=== PATIENT | male | born 1955 | race Caucasian/White ===

== ENCOUNTER 2020-04-15 09:38 | Outpatient (REF) | payer BC, SELFPAY ==
--- NOTE | 2020-04-15 09:49 | CT_ITS ---
EXAMINATION: CT CHEST WITHOUT CONTRAST CLINICAL INFORMATION: Pulmonary nodules. COMPARISON: No CT chest available for comparison. TECHNIQUE: Multidetector volumetric CT imaging of the chest was done. Axial MIP volume rendering provided. Sagittal and coronal reformatted images were obtained. This CT examination was performed using dose optimization techniques as appropriate, variously including the following: *Automated exposure control *Adjustment of mA and/or kV according to patient size (this includes techniques or standardized protocols for targeted exams where dose is matched to indication/reason for exam; i.e. extremities or head) *Use of iterative reconstruction technique DLP: 180 mGy-cm FINDINGS: FOURTH GRADE TEACHER: Unremarkable. LUNGS: There is a 2 mm, tail appearing nodule right upper lobe image 146/7, 2 mm nodule centrally in the right upper lobe axial image 145/7, 2 mm nodule centrally right upper lobe image 171/7, 5 mm nodule right lower lobe adjacent to major fissure axial image 316/7 4 mm subpleural nodule right lower lobe posteriorly image 323/7. 2 mm nodule along the right minor fissure image 309/7. No additional nodules, mass or consolidation seen. MEDIASTINUM: The thyroid lobes are symmetrical and normal. The central trachea and the bronchi are widely patent. Heart size and the great vessels are normal caliber. There are coronary artery calcifications present. There is no pericardial effusion. PLEURA: There is no pleural effusion. No pleural mass or thickening. AXILLA: No abnormal axilla lymph nodes or mass seen. There is a prominent retroareolar soft tissue density suggestive of gynecomastia. UPPER ABDOMEN: Visualized liver, spleen, pancreas and bilateral adrenal glands appear unremarkable. OSSEOUS STRUCTURES: There is mild ventral spondylosis dorsal spine. No lytic or sclerotic process seen. IMPRESSION: Multiple small pulmonary nodules as described above. Recommend follow-up as per Rakan guidelines and nodules less than 6 nodular in low risk patients no follow up in high risk patients at 12 months
== END 2020-04-15 09:39 | disposition home or self-care (01) ==
LOC: HO.CT 09:38
PROVIDERS: Visit Provider Internal Medicine Pulmonary Disease
DX: R91.8 Other nonspecific abnormal finding of lung field (principal)
CPT/HCPCS: 71250

== ENCOUNTER → 2020-05-14 11:39 | Outpatient (BNVA) | payer BC, SELFPAY | PROVIDERS: PCP Internal Medicine; Referring Provider Internal Medicine; Visit Provider Internal Medicine Pulmonary Disease | DX: Z76.89 Persons encountering health services in other specified circumstances (principal) ==

== ENCOUNTER → 2020-07-19 10:21 | Outpatient (BNVA) | payer BC, SELFPAY | PROVIDERS: PCP Internal Medicine; Visit Provider Internal Medicine Pulmonary Disease ==

== ENCOUNTER 2020-07-19 11:13 | Outpatient (REF) | payer BC, SELFPAY ==
--- NOTE | 2020-07-19 15:29 | PFT_ITS ---
INDICATION: Dyspnea. SPIROMETRY: The FEV1 to FVC of 88% with an FEV1 of 3.14 L, which is 110% predicted, and an FVC of 3.56 L, which is predicted. No significant response to bronchodilators noted. Maximum voluntary ventilation 91% predicted. LUNG VOLUMES: Total lung capacity 94% predicted. DIFFUSION CAPACITY: DLCO 82% predicted. COMPARISONS: None. INTERPRETATION: No obstructive nor restrictive ventilatory defects identified. No significant response to bronchodilators noted. Normal maximum voluntary ventilation. Lung volumes are within normal limits. Diffusion capacity is low normal. If asthma is in the differential, methacholine challenge may be helpful in assessing for hyper-reactive airways, otherwise clinical correlation warranted. Rohan Null MD MR/MODL / [id number]
== END 2020-07-19 11:14 | disposition home or self-care (01) ==
LOC: HO.RESP 11:13
PROVIDERS: PCP Internal Medicine; Visit Provider Internal Medicine Pulmonary Disease
DX: R06.00 Dyspnea, unspecified (principal); R05 Cough
CPT/HCPCS: 94060; 94727; 94729

== ENCOUNTER → 2020-08-05 09:00 | Outpatient (BNVA) | payer BC, SELFPAY | PROVIDERS: PCP Internal Medicine; Visit Provider Internal Medicine Pulmonary Disease ==

== ENCOUNTER → 2020-08-23 09:21 | Outpatient (REF) | payer BC, SELFPAY ==
--- NOTE | 2020-08-23 09:26 | CA_ITS ---
Transthoracic Echocardiogram Patient (Last, First, Middle): Vinicius Khalil L Gender: Male Date of : 1955 Age: 65 Procedure Date: 08/23/2020 Procedure Type: Transthoracic Echocardiogram Location: OP Height: 165.1 cm Weight: 80.29 kg BSA: 1.88 m2 Heart Rate: bpm BP: 120 / 72 mmHg Chargeback Specialist: ZACARIAS Referring MD: Erik Palacios MD Kitchen Steward: Raymond Aguirre MD Symptoms: R06.00 - Dyspnea, unspecified Study Quality: Fair ECG Rhythm: Sinus Conclusions: - Essentially normal study with trivial aortic regurgitation Findings Left Ventricle Normal left ventricular size, thickness, and systolic function. The visually estimated ejection fraction is between 60-65%. Diastolic function is normal for age. Right Ventricle Normal right ventricular cavity size and systolic function. Atria Both atria are normal in size. There is no evidence of interatrial shunt. Aortic Valve The aortic valve was not well visualized. There is mild calcification of the aortic valve. There is no aortic valve stenosis. There is trace (trivial) aortic valve regurgitation. Mitral Valve Likely normal mitral valve structure and function. There is trace mitral valve regurgitation. There is no mitral valve stenosis. Pulmonic Valve The pulmonic valve was not well visualized. Tricuspid Valve Likely normal tricuspid valve structure and function. There is trace tricuspid valve regurgitation. The right ventricular systolic pressure is normal. The right ventricular systolic pressure is 25 mmHg. Normal right atrial pressure. There is no evidence of pulmonary hypertension. Great Vessels All visible segments of the aorta are normal in size. The pulmonary artery was not well visualized. Venous The inferior vena cava is normal in size and collapses greater than 50% with inspiration. Pericardium/Pleural There is no evidence of pericardial effusion. Prior Study Comparison No prior study available for comparison. Measurements M-Mode Liner Measurements Normals - Women/Men AOV Cusps: 1.80 1.5-2.6 cm/m2 2D Linear Measurements IVSd: -0.94 0.6-0.9/0.6-1.0 cm LVIDd: 3.65 3.9-5.3/4.2-5.9 cm LVIDd Index: 1.94 2.4-3.2/2.2-3.1 cm/m2 LVIDs: 2.42 2.0-3.6 cm LVPWd: 0.93 0.7-1.1 cm Ao Root: 3.20 2.1-3.5 cm LA Diam: 3.10 2.7-3.8/3.0-4.0 cm LAIDs Index: 1.65 1.5-2.3 cm/m2 LV Mass: 192.52 67-162/88-224 g LV Mass Index: 102.41 43-95/49-115 g/m2 LVOT Diam: 2.10 3.0+(-)1.3 cm 2D Systolic Function EF 4C: 67.90 >55% EF 2C: 70.00 >55% EF BiP: 69.70 >55% Mitral Valve MV Pk E: 0.68 MV PK A: 0.58 MV Decel Time: 204.00 E/A: 1.20 E'Lateral: 9.03 E'Medial: 5.87 E/E' Med: 11.60 E/E' Lat: 7.50 PHT: 60.00 MVA PHT: 3.67 Decel Payette: 3.33 Aortic Valve AoV Pk Patrick: 1.30 AoV Pk Grad: 7.00 LVOT LVOT Pk Patrick: 1.07 LVOT Mn Patrick: 0.75 LVOT VTI: 0.22 LVOT Pk Grad: 5.00 LVOT Mn Grad: 3.00 LVOT Diam: 2.10 LVOT Area: 3.46 Diastolic Function MV Pk E: 0.68 MV Pk A: 0.58 E/A: 1.20 E'Medial: 5.87 E/E' Med: 11.60 E' Laterial: 9.03 E/E' Lat: 7.50 Tricuspid Valve TR Pk Patrick: 2.34 TR Pk Grad: 22.00 RA Press: 3.00 RVSP: 25.00 Great Vessels Aorta Ao Root-2D: 3.20 2.0-3.7 cm Ao Asc: 3.30 2.1-3.4 cm Ao Arch: 2.60 Pulmonary Valve PV Pk Patrick: 1.06 Peak PV Grad: 4.00 Updated in Other Vendor System with Status of Final Raymond Aguirre MD electronically signed on 08/24/2020 1:41:51 PM with status of Final
== END ==
LOC: HO.CARD 09:21
PROVIDERS: Visit Provider Internal Medicine Pulmonary Disease
DX: R06.00 Dyspnea, unspecified (principal)
CPT/HCPCS: 93306

== ENCOUNTER → 2020-09-18 10:38 | Outpatient (BNVA) | payer BC, SELFPAY | PROVIDERS: PCP Internal Medicine; Visit Provider Internal Medicine Pulmonary Disease ==

== ENCOUNTER → 2021-06-12 11:43 | Outpatient (BNVA) | payer MEDICARE, BC, SELFPAY | PROVIDERS: PCP Internal Medicine; Visit Provider Internal Medicine Pulmonary Disease | DX: G47.33 Obstructive sleep apnea (adult) (pediatric) (principal); R91.8 Other nonspecific abnormal finding of lung field; R06.00 Dyspnea, unspecified; Z99.89 Dependence on other enabling machines and devices | CPT/HCPCS: 99212 ==

== ENCOUNTER → 2021-07-22 09:47 | Outpatient (BNVA) | payer MEDICARE, BC, SELFPAY | PROVIDERS: PCP Internal Medicine; Visit Provider Internal Medicine Pulmonary Disease | DX: G47.33 Obstructive sleep apnea (adult) (pediatric) (principal); R91.8 Other nonspecific abnormal finding of lung field | CPT/HCPCS: 99212 ==

== ENCOUNTER → 2022-01-29 09:51 | Outpatient (BNVA) | payer MEDICARE, BC, SELFPAY | PROVIDERS: PCP Internal Medicine; Visit Provider Internal Medicine Pulmonary Disease | DX: R91.8 Other nonspecific abnormal finding of lung field (principal); G47.33 Obstructive sleep apnea (adult) (pediatric); R06.00 Dyspnea, unspecified | CPT/HCPCS: 99212 ==

== ENCOUNTER → 2022-08-11 12:54 | Outpatient (BNVA) | payer MEDICARE, BC, SELFPAY | PROVIDERS: PCP Internal Medicine; Visit Provider Internal Medicine Pulmonary Disease | DX: R91.8 Other nonspecific abnormal finding of lung field (principal); G47.33 Obstructive sleep apnea (adult) (pediatric) | CPT/HCPCS: 99212 ==

== ENCOUNTER 2023-04-15 13:29 | Outpatient (AMB) | payer MEDICARE, BC, SELFPAY ==
--- NOTE | 2023-04-15 13:34 | A.OFFVIS_ITS ---
Intake Vital Signs 04/15/23 13:38 Height 5 ft 5 in BP 117/64 Blood Pressure Location Rt brachial Position Sitting Pulse 73 Pulse Source Doppler Pulse Oximetry (%) 97 Oxygen Delivery Method Room Air Intake Visit Reasons: COPD Allergies No Known Allergies Allergy (Verified 08/11/22 13:04) HPI COPD HPI Details 68-year-old gentleman, nonsmoker, follow ed for EMILIA.? He continues to use his CPAP with good control of his underlying sleep apnea.? No new pulmonary related concerns complaints. Review of Systems Const Denies daytime sleepiness, Denies excessive sweating, Denies fatigue, Denies fever(s), Denies lethargy, Denies malaise, Denies night sweats, Denies snoring and Denies weight loss Eyes Denies blurry vision and Denies itchy eyes ENT Denies nasal congestion, Denies post nasal drip, Denies sinus pain, Denies sinus pressure and Denies other ( Thrush) Card Denies chest pain, Denies pedal edema, Denies dyspnea, Denies orthopnea and Denies paroxysmal nocturnal dyspnea Resp Denies cough, Denies hemoptysis, Denies excessive phlegm production, Denies dyspnea, Denies snoring and Denies wheezing GI Denies abdominal pain and Denies heartburn Musc Denies myalgias, Denies arthralgias and Denies joint swelling Skin/Breast Denies rash Neuro Denies memory loss and Denies seizure-like activity Psych Denies abnormal sleep pattern, Denies anxiety and Denies memory loss Endo Denies excessive sweating, Denies fatigue and Denies heat intolerance Flynn/Lymph Denies easy bruising Aller/Immun Denies itchy eyes, Denies seasonal rhinorrhea and Denies wheezing Physical Exam Vital Signs: Last Vital Signs Pulse 73 04/15/23 13:38 BP 117/64 04/15/23 13:38 Pulse Ox 97 04/15/23 13:38 Oxygen Delivery Method Room Air 04/15/23 13:38 Const General: no acute distress and alert Nutritional Appearance: not obese Orientation/consciousness: Other orientation findings ( oriented) HEENT Head: Yes atraumatic Eyes General: appearance normal, both eyes and all related structures Sclerae: sclerae normal EOM: EOMs intact bilaterally Neck Neck: Yes supple Lymphatic: no lymphadenopathy noted Resp Effort & Inspection: normal respiratory effort and no use of accessory muscles Auscultation: clear to auscultation bilaterally Cardio Rate: regular rate Rhythm: regular rhythm Heart sounds: no gallops, no murmurs and no rubs Skin General skin exam: other ( warm) Extrem General: No clubbing, No cyanosis and No edema Assessment & Plan Assessment & Plan (1) EMILIA (obstructive sleep apnea): Code(s): G47.33 - Obstructive sleep apnea (adult) (pediatric) Plan: Therapy and compliance report reviewed - patient is benefitting from and is compliant with noninvasive positive pressure ventilation treatment, using it greater than 70% of the time, more than 4 hours per night. Continue current CPAP therapy. Coding Level of Care Code Est Pt Level 3 (70228) Diagnoses EMILIA (obstructive sleep apnea) G47.33
[2023-04-15 13:38] VITALS: BP 117/64; PULSE 73; O2SAT 97
== END 2023-04-15 13:57 | disposition home or self-care (01) ==
PROVIDERS: PCP Internal Medicine; Visit Provider Internal Medicine Pulmonary Disease
DX: G47.33 Obstructive sleep apnea (adult) (pediatric) (principal)
CPT/HCPCS: 99213

== ENCOUNTER → 2023-04-15 13:29 | Outpatient (BNVA) | payer MEDICARE, BC, SELFPAY | PROVIDERS: PCP Internal Medicine; Visit Provider Internal Medicine Pulmonary Disease | DX: G47.33 Obstructive sleep apnea (adult) (pediatric) (principal) | CPT/HCPCS: 99212 ==

== ENCOUNTER 2023-07-16 13:58 | Outpatient (AMB) | payer MEDICARE, BC, SELFPAY ==
[2023-07-16 14:28] VITALS: BP 132/68; PULSE 72; O2SAT 97; BMI 29.1
--- NOTE | 2023-07-16 14:28 | MHC.OFFVIS ---
Intake Vital Signs 07/16/23 14:28 Height 5 ft 5 in Weight 175 lb BMI 29.1 BP 132/68 Blood Pressure Location Lt brachial Position Sitting Pulse 72 Pulse Source Pulse Oximeter Pulse Oximetry (%) 97 Oxygen Delivery Method Room Air Intake Visit Reasons: increased shortness of breath Dormitory Supervisor Required: No Mail Messenger: Mail Messenger offered & declined Allergies No Known Allergies Allergy (Verified 07/16/23 14:32) Medication List - Last Reconciled 07/16/23 by Matilda Mckeon LPN [id number] 600-2-6 mg 1 tab PO DAILY apixaban (Eliquis) 5 mg PO BID diltiazem HCl ER (DILT-XR) 180 mg PO DAILY furosemide 20 mg PO DAILY omeprazole 20 mg PO DAILY rosuvastatin 10 mg PO BEDTIME tamsulosin 0.8 mg PO DAILY HPI increased shortness of breath HPI Details Vinicius is a pleasant 68 year old male, never smoker, followed for bilateral pulmonary nodules and EMILIA on CPAP.?Today he presents for an acute visit. Per Dr. Palacios's last note, it appeared patient was undergoing cardiac evaluation, as arrhythmias may have been contributing to intermittent dyspnea. He is taking lasix QD. Denies orthopnea or BLE. He reports progressively worsening dyspnea on exertion that has been more persistent over the past year. He denies wheezing, chest tightness or cough. He is not on any maintenance inhalers. COUNTS INCLUDE 234 BEDS AT THE [facility] Social History (Updated 07/16/23 @ 14:35 by Matilda Mckeon LPN) Patient Tobacco Use Status: Never used Tobacco Review of Systems Const Denies chills, Denies excessive sweating, Denies fever(s), Denies headache(s) and Denies night sweats Eyes Denies dry eyes, Denies irritation and Denies itchy eyes ENT Reports Normal hearing present, Denies headache(s), Denies nasal congestion, Denies nasal discharge, Denies post nasal drip and Denies sore throat Card Denies chest pain, Denies chest pain at rest, Denies chest pain with activity, Denies claudication, Denies leg edema, Denies orthopnea and Denies paroxysmal nocturnal dyspnea Resp Denies chest congestion, Denies cough, Denies excessive phlegm production, Denies pain on inspiration, Denies pain with cough, Denies stridor and Denies wheezing Musc Denies myalgias Neuro Reports Normal hearing present and Denies headache(s) Endo Denies excessive sweating Flynn/Lymph Denies lymphadenopathy Aller/Immun Denies itchy eyes, Denies seasonal rhinorrhea and Denies wheezing Physical Exam Vital Signs: Last Vital Signs Pulse 72 07/16/23 14:28 BP 132/68 07/16/23 14:28 Pulse Ox 97 07/16/23 14:28 Oxygen Delivery Method Room Air 07/16/23 14:28 BMI result Body Mass Index 29.1 Const General: cooperative, healthy appearing, comfortable, no acute distress, well developed and alert Nutritional Appearance: obese Orientation/consciousness: patient oriented x3 Limitations: no limitations HEENT Head: Yes normal to inspection, Yes normocephalic and Yes atraumatic Ears: hearing grossly normal bilaterally and external ears normal Eyes General: appearance normal, both eyes and all related structures Eyelids: Yes eyelids normal Sclerae: sclerae normal EOM: EOMs intact bilaterally Neck Neck: Yes normal visual inspection and Yes no lymphadenopathy Lymphatic: no lymphadenopathy noted Chest Chest palpation & inspection: normal inspection of the chest Resp Effort & Inspection: normal respiratory effort, able to speak in complete sentences, no audible wheezes, no cough, no stridor, not tachypneic, no tripod positioning and no use of accessory muscles Auscultation: clear to auscultation bilaterally Cardio Jugular venous distension: no JVD Rate: regular rate Rhythm: regular rhythm Skin Other: warm, dry General skin exam: no rashes or lesions noted Neuro General: patient oriented x3 Cranial nerves: Yes Normal hearing present Cognition (Neuro): normal cognition Gait exam (Neuro): Normal gait present Extrem General: Yes normal to inspection, Yes capillary refill normal, Yes no clubbing, cyanosis or edema and Yes no pedal edema Psych Appearance: grossly normal and well kempt Speech and movement: Normal speech and movement present and Clear speech present Affect: normal affect Attitude: cooperative Thought process: Normal thought process present Thought content: Normal thought content present Insight: Good insight present (Psych) Judgement: Good judgement present (Psych) Assessment & Plan Assessment & Plan (1) Dyspnea on exertion: Code(s): R06.00 - Dyspnea, unspecified (2) Pulmonary nodules: Code(s): R91.8 - Other nonspecific abnormal finding of lung field Plan Vinicius presents with progressively worsening dyspnea over the past year. Will send for updated PFT and chest CT. Discussed empirically trialing an inhaler but patient would like to hold off until reviewing results. All questions were answered and patient is in agreement of plan. Will follow up to review results or sooner if needed. Orders: Orders CT chest wo IV con Today R06.09 - Other forms of dyspnea, R91.8 - Other nonspecific abnormal finding of lung field PFT pulmonary function test Today R06.00 - Dyspnea, unspecified Coding Level of Care Code Est Pt Level 4 (07907) Diagnoses Dyspnea on exertion R06.00 Pulmonary nodules R91.8
== END 2023-07-16 15:02 | disposition home or self-care (01) ==
PROVIDERS: PCP Internal Medicine; Visit Provider Nurse Practitioner Family
DX: R06.00 Dyspnea, unspecified (principal); R91.8 Other nonspecific abnormal finding of lung field
CPT/HCPCS: 99214

== ENCOUNTER → 2023-07-16 13:58 | Outpatient (BNVA) | payer MEDICARE, BC, SELFPAY | PROVIDERS: PCP Internal Medicine; Visit Provider Nurse Practitioner Family | DX: R06.00 Dyspnea, unspecified (principal); R91.8 Other nonspecific abnormal finding of lung field | CPT/HCPCS: 99212 ==

== ENCOUNTER 2023-08-27 14:48 | Outpatient (REF) | payer MEDICARE, BC, SELFPAY ==
--- NOTE | ~2023-08-27 | CT_ITS ---
EXAMINATION: CT CHEST WITHOUT CONTRAST CLINICAL INFORMATION: Dyspnea. COMPARISON: Chest CTs dating between April 01, 2021 and September 26, 2019. TECHNIQUE: Multidetector volumetric CT imaging of the chest was done. Axial MIP volume rendering provided. Sagittal and coronal reformatted images were obtained. This CT examination was performed using dose optimization techniques as appropriate, variously including the following: *Automated exposure control *Adjustment of mA and/or kV according to patient size (this includes techniques or standardized protocols for targeted exams where dose is matched to indication/reason for exam; i.e. extremities or head) *Use of iterative reconstruction technique DLP: 192 mGy-cm FINDINGS: LUNGS: The lungs are clear with no evidence of inflammation or nodules. MEDIASTINUM: Calcification of the aortic valve. Heart normal in size. No pericardial effusion. No evidence of adenopathy by size criteria. CORONARY ARTERY CALCIFICATION: Moderate to severe. PLEURA: There is no pleural effusion. No pleural mass or thickening. CHEST WALL/AXILLA: Bilateral gynecomastia. No lymphadenopathy by size criteria. UPPER ABDOMEN: Fatty infiltration of the liver. OSSEOUS STRUCTURES: Unremarkable. CT/CT chest wo IV con IMPRESSION: Unremarkable appearance of the lungs. Additional findings as above.
== END 2023-08-27 14:49 | disposition home or self-care (01) ==
LOC: HO.CT 14:48
PROVIDERS: PCP Internal Medicine; Visit Provider Nurse Practitioner Family
DX: R06.09 Other forms of dyspnea (principal); R91.8 Other nonspecific abnormal finding of lung field
CPT/HCPCS: 71250

== ENCOUNTER 2023-09-28 10:13 | Outpatient (AMB) | payer MEDICARE, BC, SELFPAY ==
[2023-09-28 10:14] VITALS: BP 118/62; PULSE 71; O2SAT 96; BMI 30.8
--- NOTE | 2023-09-28 10:14 | MHC.OFFVIS ---
Intake Vital Signs 09/28/23 10:14 Height 5 ft 5 in Weight 185 lb 3.013 oz BMI 30.8 BP 118/62 Blood Pressure Location Lt brachial Position Sitting Pulse 71 Pulse Source Doppler Pulse Oximetry (%) 96 Intake Visit Reasons: follow up for results Allergies No Known Allergies Allergy (Verified 07/16/23 14:32) HPI follow up for results HPI Details 68-year-old gentleman, nonsmoker, followed for EMILIA.? He continues to use his CPAP with good control of his underlying sleep apnea.? Now he is complaining of slowly worsening dyspnea over the last 4 years so far with negative pulmonary and cardiac evaluation. [facility] Social History Patient Tobacco Use Status: Never used Tobacco Review of Systems Const Denies daytime sleepiness, Denies excessive sweating, Denies fatigue, Denies fever(s), Denies lethargy, Denies malaise, Denies night sweats, Denies snoring and Denies weight loss Eyes Denies blurry vision and Denies itchy eyes ENT Denies nasal congestion, Denies post nasal drip, Denies sinus pain, Denies sinus pressure and Denies other ( Thrush) Card Denies chest pain, Denies pedal edema, Denies dyspnea, Reports dyspnea on exertion, Denies orthopnea and Denies paroxysmal nocturnal dyspnea Resp Denies cough, Denies hemoptysis, Denies excessive phlegm production, Denies dyspnea, Reports dyspnea on exertion, Denies snoring and Denies wheezing GI Denies abdominal pain and Denies heartburn Musc Denies myalgias, Denies arthralgias and Denies joint swelling Skin/Breast Denies rash Neuro Denies memory loss and Denies seizure-like activity Psych Denies abnormal sleep pattern, Denies anxiety and Denies memory loss Endo Denies excessive sweating, Denies fatigue and Denies heat intolerance Flynn/Lymph Denies easy bruising Aller/Immun Denies itchy eyes, Denies seasonal rhinorrhea and Denies wheezing Physical Exam Vital Signs: Last Vital Signs Pulse 71 09/28/23 10:14 BP 118/62 09/28/23 10:14 Pulse Ox 96 09/28/23 10:14 BMI result Body Mass Index 30.8 Const General: no acute distress and alert Nutritional Appearance: not obese Orientation/consciousness: Other orientation findings ( oriented) HEENT Head: Yes atraumatic Eyes General: appearance normal, both eyes and all related structures Sclerae: sclerae normal EOM: EOMs intact bilaterally Neck Neck: Yes supple Lymphatic: no lymphadenopathy noted Resp Effort & Inspection: normal respiratory effort and no use of accessory muscles Auscultation: clear to auscultation bilaterally Cardio Rate: regular rate Rhythm: regular rhythm Heart sounds: no gallops, no murmurs and no rubs Skin General skin exam: other ( warm) Extrem General: No clubbing, No cyanosis and No edema Assessment & Plan Assessment & Plan (1) Dyspnea on exertion: Code(s): R06.00 - Dyspnea, unspecified Plan: Unclear etiology, so far with negative pulmonary and cardiac evaluation. Will repeat cardiopulmonary exercise test. (2) EMILIA (obstructive sleep apnea): Code(s): G47.33 - Obstructive sleep apnea (adult) (pediatric) Plan: Well controlled on current CPAP therapy. Continue CPAP therapy. Therapy and compliance report reviewed - patient is benefitting from and is compliant with noninvasive positive pressure ventilation treatment, using it greater than 70% of the time, more than 4 hours per night. Orders: Orders CA cardiopulmonary stress test Today R06.00 - Dyspnea, unspecified Coding Level of Care Code Est Pt Level 4 (92427) Diagnoses Dyspnea on exertion R06.00 EMILIA (obstructive sleep apnea) G47.33
== END 2023-09-28 10:41 | disposition home or self-care (01) ==
PROVIDERS: PCP Internal Medicine; Visit Provider Internal Medicine Pulmonary Disease
DX: R06.00 Dyspnea, unspecified (principal); G47.33 Obstructive sleep apnea (adult) (pediatric)
CPT/HCPCS: 99214

== ENCOUNTER → 2023-09-28 10:13 | Outpatient (BNVA) | payer MEDICARE, BC, SELFPAY | PROVIDERS: PCP Internal Medicine; Visit Provider Internal Medicine Pulmonary Disease | DX: R06.00 Dyspnea, unspecified (principal); G47.33 Obstructive sleep apnea (adult) (pediatric) | CPT/HCPCS: 99212 ==

== ENCOUNTER 2023-10-13 08:42 | Outpatient (REF) | payer MEDICARE, BC, SELFPAY ==
[2023-10-13 09:24] VITALS: PULSE 63; RESP 16; O2SAT 95
--- NOTE | 2023-10-13 16:03 | PFT_ITS ---
Flows: FEV1: 94 % of predicted at 2.65 L FVC: 90 % of predicted at 3.26 L FEV1/FVC: 81 % Bronchodilator response: Present in small to medium airways only Volumes: Total lung capacity: 88 % of predicted at 5.29 L Residual volume: 86 % of predicted at 1.78 L Slow vital capacity: 88 % of predicted at 3.51 L Expiratory reserve volume: 100 % of predicted at 0.97 L Diffusion capacity: Normal Impression: No obstructive or restrictive ventilatory defect. Bronchodilator response is present in small to medium airways only. MTDD
== END 2023-10-13 08:43 | disposition home or self-care (01) ==
LOC: HO.RESP 08:42
PROVIDERS: PCP Internal Medicine; Visit Provider Nurse Practitioner Family
DX: R06.00 Dyspnea, unspecified (principal)
CPT/HCPCS: 94010; 94640; 94727; 94729

== ENCOUNTER → 2023-10-13 16:03 | Outpatient (BNV) | payer MEDICARE, BC, SELFPAY | PROVIDERS: PCP Internal Medicine; Visit Provider Internal Medicine Pulmonary Disease | DX: R06.00 Dyspnea, unspecified (principal) | CPT/HCPCS: 94060; 94727; 94729 ==

== ENCOUNTER 2023-10-27 13:09 | Outpatient (AMB) | payer MEDICARE, BC, SELFPAY ==
--- NOTE | 2023-10-27 13:10 | MHC.OFFVIS ---
Vital Signs 10/27/23 13:11 Height 5 ft 5 in Weight 182 lb BMI 30.3 BP 126/67 Blood Pressure Location Lt brachial Position Sitting Pulse 76 Pulse Source Doppler Pulse Oximetry (%) 94 Oxygen Delivery Method Room Air Intake Visit Reasons: Obstructive sleep apnea Allergies No Known Allergies Allergy (Verified 10/27/23 13:18) HPI HPI Obstructive sleep apnea: Details: 68-year-old gentleman, nonsmoker, followed for EMILIA.? He continues to use his CPAP with good control of his underlying sleep apnea. He continues to complain of slowly worsening dyspnea over the last 4 years so far with negative pulmonary and cardiac evaluation. Patient did have cardiopulmonary exercise test that showed no pulmonary, but cardiovascular limitation to his exercise capacity. [facility] Social History Patient Tobacco Use Status: Never used Tobacco Review of Systems Const Denies daytime sleepiness, Denies excessive sweating, Denies fatigue, Denies fever(s), Denies lethargy, Denies malaise, Denies night sweats, Denies snoring and Denies weight loss Eyes Denies blurry vision and Denies itchy eyes ENT Denies nasal congestion, Denies post nasal drip, Denies sinus pain, Denies sinus pressure and Denies other ( Thrush) Card Denies chest pain, Denies pedal edema, Denies dyspnea, Denies orthopnea and Denies paroxysmal nocturnal dyspnea Resp Denies cough, Denies hemoptysis, Denies excessive phlegm production, Denies dyspnea, Denies snoring and Denies wheezing GI Denies abdominal pain and Denies heartburn Musc Denies myalgias, Denies arthralgias and Denies joint swelling Skin/Breast Denies rash Neuro Denies memory loss and Denies seizure-like activity Psych Denies abnormal sleep pattern, Denies anxiety and Denies memory loss Endo Denies excessive sweating, Denies fatigue and Denies heat intolerance Flynn/Lymph Denies easy bruising Aller/Immun Denies itchy eyes, Denies seasonal rhinorrhea and Denies wheezing Physical Exam Vital Signs: Last Vital Signs Pulse 76 10/27/23 13:11 BP 126/67 10/27/23 13:11 Pulse Ox 94 10/27/23 13:11 Oxygen Delivery Method Room Air 10/27/23 13:11 BMI result Body Mass Index 30.3 Const General: no acute distress and alert Nutritional Appearance: not obese Orientation/consciousness: Other orientation findings ( oriented) HEENT Head: Yes atraumatic Eyes General: appearance normal, both eyes and all related structures Sclerae: sclerae normal EOM: EOMs intact bilaterally Neck Neck: Yes supple Lymphatic: no lymphadenopathy noted Resp Effort & Inspection: normal respiratory effort and no use of accessory muscles Auscultation: clear to auscultation bilaterally Cardio Rate: regular rate Rhythm: regular rhythm Heart sounds: no gallops, no murmurs and no rubs Skin General skin exam: other ( warm) Extrem General: No clubbing, No cyanosis and No edema Assessment & Plan Assessment & Plan (1) EMILIA (obstructive sleep apnea): Code(s): G47.33 - Obstructive sleep apnea (adult) (pediatric) Category: Medical Plan: Well controlled on current CPAP therapy. Continue CPAP therapy. (2) Dyspnea on exertion: Code(s): R06.00 - Dyspnea, unspecified Category: Medical Plan: Results of cardiopulmonary exercise test reviewed - no evidence of pulmonary limitation, does have evidence of cardiovascular limitation. Patient has been advised to continue to follow-up with his mobile crane operator. Coding Level of Care Code Est Pt Level 4 (37803) Diagnoses EMILIA (obstructive sleep apnea) G47.33 Dyspnea on exertion R06.00
[2023-10-27 13:11] VITALS: BP 126/67; PULSE 76; O2SAT 94; BMI 30.3
== END 2023-10-27 13:25 | disposition home or self-care (01) ==
PROVIDERS: PCP Internal Medicine; Visit Provider Internal Medicine Pulmonary Disease
DX: G47.33 Obstructive sleep apnea (adult) (pediatric) (principal); R06.00 Dyspnea, unspecified
CPT/HCPCS: 99214

== ENCOUNTER → 2023-10-27 13:09 | Outpatient (BNVA) | payer MEDICARE, BC, SELFPAY | PROVIDERS: PCP Internal Medicine; Visit Provider Internal Medicine Pulmonary Disease | DX: G47.33 Obstructive sleep apnea (adult) (pediatric) (principal); R06.00 Dyspnea, unspecified | CPT/HCPCS: 99212 ==

== ENCOUNTER 2025-02-19 12:55 | Outpatient (AMB) | payer MEDICARE, BC, SELFPAY ==
[2025-02-19 13:03] VITALS: BP 111/62; PULSE 68; O2SAT 97
--- NOTE | 2025-02-19 13:03 | MHC.OFFVIS ---
Vital Signs 02/19/25 13:03 Weight 175 lb BP 111/62 Blood Pressure Location Rt brachial Position Sitting Pulse 68 Pulse Source Pulse Oximeter Pulse Oximetry (%) 97 Oxygen Delivery Method Room Air Intake Visit Reasons: COPD Allergies No Known Allergies Allergy (Verified 10/27/23 13:18) HPI HPI COPD: Details: 69-year-old gentleman, nonsmoker, followed for EMILIA.? He continues to use his CPAP with good control of his underlying sleep apnea. She denies any recent exacerbations. Patient recently been diagnosed with vascular dementia, that unfortunately is slowly progressive. [facility] Social History (Reviewed 10/27/23 @ 13:17 by Audrey Villegas [facility]) Patient Tobacco Use Status: Never used Tobacco Review of Systems Const Denies daytime sleepiness, Denies excessive sweating, Denies fatigue, Denies fever(s), Denies lethargy, Denies malaise, Denies night sweats, Denies snoring and Denies weight loss Eyes Denies blurry vision and Denies itchy eyes ENT Denies nasal congestion, Denies post nasal drip, Denies sinus pain, Denies sinus pressure and Denies other ( Thrush) Card Denies chest pain, Denies pedal edema, Denies dyspnea, Denies orthopnea and Denies paroxysmal nocturnal dyspnea Resp Denies cough, Denies hemoptysis, Denies excessive phlegm production, Denies dyspnea, Denies snoring and Denies wheezing GI Denies abdominal pain and Denies heartburn Musc Denies myalgias, Denies arthralgias and Denies joint swelling Skin/Breast Denies rash Neuro Reports memory loss and Denies seizure-like activity Psych Denies abnormal sleep pattern, Denies anxiety and Reports memory loss Endo Denies excessive sweating, Denies fatigue and Denies heat intolerance Flynn/Lymph Denies easy bruising Aller/Immun Denies itchy eyes, Denies seasonal rhinorrhea and Denies wheezing Physical Exam Vital Signs: Last Vital Signs Pulse 68 02/19/25 13:03 BP 111/62 02/19/25 13:03 Pulse Ox 97 02/19/25 13:03 Oxygen Delivery Method Room Air 02/19/25 13:03 Const General: no acute distress and alert Nutritional Appearance: not obese Orientation/consciousness: Other orientation findings ( oriented) HEENT Head: Yes atraumatic Eyes General: appearance normal, both eyes and all related structures Sclerae: sclerae normal EOM: EOMs intact bilaterally Neck Neck: Yes supple Lymphatic: no lymphadenopathy noted Resp Effort & Inspection: normal respiratory effort and no use of accessory muscles Auscultation: clear to auscultation bilaterally Cardio Rate: regular rate Rhythm: regular rhythm Heart sounds: no gallops, no murmurs and no rubs Skin General skin exam: other ( warm) Extrem General: No clubbing, No cyanosis and No edema Assessment & Plan Assessment & Plan (1) EMILIA (obstructive sleep apnea): Code(s): G47.33 - Obstructive sleep apnea (adult) (pediatric) Category: Medical Plan: Well-controlled on current CPAP therapy. Continue CPAP therapy. Coding Level of Care Code Est Pt Level 3 (03239) Diagnoses EMILIA (obstructive sleep apnea) G47.33
--- OUTSIDE RECORDS SUMMARY | 2025-02-19 14:06 | XMS_ITS | Clinical Summary ---
Author Organization [facility] Address [address] [place] [address] Care Team Providers Care Senior It Project Manager Name Role Phone Sav Cavanaugh MD Primary Care Provider + [phone] Allergies No known active allergies Medications Medication Sig Dispensed Refills Start Date End Date Status Rosuvastatin Calcium 10 MG CPSP Take by mouth. 0 Active Gsgxxbzxl-Mskwzkeps-K cetylcyst (Cerefolin NAC) 6-2-600 MG TABS Take by mouth. 0 Active amLODIPine (NORVASC) tablet 5 mg Take 1 tablet (5 mg total) by mouth daily. 0 Active aspirin 81 MG chewable tablet Chew 1 tablet (81 mg total) by mouth daily. 0 Active Minto-3 Fatty Acids (Fish Oil) 1000 MG CAPS Take by mouth. 0 Active Glucosamine-Chondroit -Vit C-Mn (GLUCOSAMINE 1500 COMPLEX PO) Take by mouth. 0 Active omeprazole (PriLOSEC) 20 MG capsule Take 1 capsule (20 mg total) by mouth daily. 0 Active vitamin D3 (VITAMIN D3) 25 MCG (1000 UT) tablet Take 1 tablet (1,000 Units total) by mouth daily. 0 Active Pediatric Multiple Vitamins (Multi-Delyn) LIQD liquid Take 5 mL by mouth daily. 0 Active Turmeric 500 MG CAPS Take 1,000 mg by mouth. 0 Active clopidogrel (PLAVIX) 75 MG tablet Take 75 mg by mouth daily. 0 11/17/2021 Active tamsulosin (FLOMAX) 0.4 MG CAPS Take 2 capsules (0.8 mg total) by mouth daily. 0 01/09/2022 Active amoxicillin (AMOXIL) 500 MG capsule Take 1,000 mg by mouth 3 (three) times a day. 0 01/09/2022 Active apixaban (Eliquis) 5 MG TABS tablet Take 1 tablet (5 mg total) by mouth 2 (two) times a day. 0 01/21/2022 Active I-Uaohvrvtytjk-Z66-B6 -B2 (CEREFOLIN PO) Take 20 mg by mouth. 0 Active ALLOPURINOL PO Take by mouth. 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 Iron deficiency anemia due to chronic blood loss 01/14/2022 Cryptogenic stroke 01/14/2022 Family History Medical History Relation Name Comments Heart disease Father Relation Name Status Comments Father Social History Tobacco Use Types Packs/Day Years Used Date Smoking Tobacco: Every Day Cigarettes Smokeless Tobacco: Never Alcohol Use Standard Drinks/Week Comments Not Currently 0 (1 standard drink = 0.6 oz pur e alcohol) Sex and Gender Information Value Date Recorded Sex Assigned at Male 01/02/2021 1:22 PM EDT Gender Identity Not on file Sexual Orientation Not on file Job Start Date Occupation Industry Not on file Not on file Not on file Last Filed Vital Signs Vital Sign Reading Time Taken Comments Blood Pressure 124/62 05/06/2023 9:55 AM EST Pulse 63 05/06/2023 9:55 AM EST Temperature 36.7 C (98 F) 05/06/2023 9:55 AM EST Respiratory Rate 16 02/03/2022 3:08 PM EDT Oxygen Saturation 98% 05/06/2023 9:55 AM EST Inhaled Oxygen Concentration - - Weight 80.7 kg (178 lb) 05/06/2023 9:55 AM EST Height 164.5 cm (5' 4.75 ) 03/16/2022 1:01 PM ED T Body Mass Index 29.85 03/16/2022 1:01 PM EDT Plan of Treatment Health Maintenance Due Date Last Done Comments Hepatitis C Screening 1955 COVID-19 Vaccine (#1) 1956 Depression Screening 1968 Preventative Health Evaluation 1974 Tobacco Cessation Counseling 1974 Colon Cancer Screening (Colonoscopy) 2001 Hepatitis B Vaccines (3 of 3 - Hep B Twinrix 3-dose series) 11/14/2019 06/15/2019, 04/28/2019 Shingrix-Zoster Vaccine (2 of 2) 07/09/2020 05/14/2020 Abdominal Aortic Aneurysm (AAA) Screening 2021 Fall Risk Assessment 2021 Pneumococcal Vaccine (2 of 2 - PCV) 04/27/2021 04/27/2020 Influenza Vaccine (#1) 2025 0, 04/28/2019, 04/24/2016, Additional history exists DTap / Tdap / Td (2 - Td or Tdap) 10/31/2028 10/31/2018 RSV Adult > 60+ Yrs or (1 - 1-dose 75+ series) 2031 RSV Ped < 20 months Aged Out No longe r eligible based on patient's age to complete this topic Care Teams Senior It Project Manager Relationship Specialty Start Date End Date Sav Cavanaugh MD [address] [facility] [address] [place] [address] PCP - General Internal Medicine 01/10/21
--- OUTSIDE RECORDS SUMMARY | 2025-02-19 14:06 | XMS_ITS | Clinical Summary ---
Author Organization [address] [place] [address] Address [address] [place] [address] Phone Care Team Providers Care Sap Senior Developer Name Role Phone Sav Cavanaugh MD Primary Care Provider + [phone] Allergies No known active allergies Medications OMEGA-3 FATTY ACIDS-FISH OIL ORAL Take 1 tablet by mouth 1 (one) time each day. Active omeprazole (PriLOSEC) [address] capsule Take 1 capsule (20 mg total) by mouth 1 (one) time each day. Active rosuvastatin (CRESTOR) 20 mg tablet Take 1 tablet (20 mg total) by mouth 1 (one) time each day. Active levETIRAcetam (KEPPRA) 1,000 mg tablet Take 1 tablet (1,000 mg total) by mouth 2 (two) times a day. Active furosemide (LASIX) 20 mg tablet Take 1 tablet (20 mg total) by mouth 1 (one) time each day. Active allopurinoL (ZYLOPRIM) 100 mg tablet Take 1 tablet (100 mg total) by mouth 1 (one) time each day. Active dilTIAZem XR (DILACOR XR) 180 mg 24 hr capsule Take 1 capsule (180 mg total) by mouth 1 (one) time each day. 90 each 1 4 Active l-mefol/a-cyst/ meB12/algal oil (CEREFOLIN NAC, ALGAL OIL, ORAL) Take 20 mg by mouth daily. Active cholecalciferol (VITAMIN D-3) 50 mcg (2,000 unit) tablet Take 1 tablet by mouth daily. Active tamsulosin (FLOMAX) 0.4 mg 24 hr capsule Take 1 capsule (0.4 mg total) by mouth 1 (one) time each day with breakfast. Capsules should be taken 30 minutes following the same meal each day. Active apixaban (Eliquis) 5 mg tablet Take 1 tablet (5 mg total) by mouth 2 (two) times a day. 180 tablet 3 Active Active Problems Problem Noted Date Diagnosed Date A-fib ([facility] V24, [facility] V28) 05/08/2022 Assessment & Plan (10/26/2024 5:02 PM EDT): Orders: ECG 12 lead Cervical spondylosis 06/06/2021 Overview (07/04/2024): Last Assessment & Plan: Mr. Khalil was seen as a hospital follow-up. He presented to the hospital with some numbness in his left hand and so an MRI of the cervical spine was ordered revealing cervical spondylosis with some mild cord compression at C4-5. He is not myelopathic, his hand numbness has resolved (after a total of 2 hours) and his ambulation is stable ever since a CVA years ago. He would not consider having any kind of surgery and I do not find anything on exam nor imaging to impose surgery upon him. I encouraged him to avoid chiropractic manipulation of the neck, but told him the low back would be ok. He can follow-up with Dr. Squires on an as-needed basis. GERD (gastroesophageal reflux disease) Cryptogenic stroke ([facility] V24, [facility] V28) Dyspnea 01/30/2021 EMILIA (obstructive sleep apnea) 08/23/2017 Hypercholesterolemia 06/16/2017 Raynauds disease 06/16/2017 Encounters Date Type Department Care Team Description 01/03/2025 Telephone [facility] [address] [facility] [address] [place] [address] Gagan Stearns MD 12/12/2024 Telephone [facility] [address] [facility] [address] [place] [address] Fermín Beaulieu [place] from Last 3 Months Immunizations Name Administration Dates Next Due Hepatitis A-Hepatitis B Adult (Twinrix) 18yo and older 06/15/2019,04/28/2019 Influenza Quadravalent, MDCK , 0.5ml, with preservative (Flucelvax) 6mo and older 03/02/2020,04/24/2016 Influenza trivalent, 0.5mL (Fluad) 65yo and olde r 02/21/2014 Influenza trivalent, 0.5mL, preservative free (Fluarix; FluLaval; Fluzone) ages 6mo and older (Afluria) 3 years and older 04/28/2019 Moderna SARS-CoV-2 COVID-19, mRNA, LNP-S, preservative free 04/25/2021 Typhoid VICPS (Typhim Vi) 2yo and older 06/15/20 19 Zoster recombinant (Shingrix) 19yo and older Medical History Medical History Date Comments Hypercholesterolemia 06/16/2017 DX:Hypercho lesterolemia Raynauds disease 06/16/2017 DX:Raynauds dis ease GERD (gastroesophageal reflux disease) DX:GERD (gastroesophageal reflux disease) Essential (primary) hypertension DX:Essential (primary) hypertension Stroke ([facility]/HCC V24, CMS/HCC V28) DX:Stroke ([facility]); COMMENT: aborted stroke s/p TNK Dizziness DX:Dizziness Double vision DX:Double vision Meniere disease DX:Meniere disea se Family History Medical History Relation Name Comments Heart attack Father Other: Heart disease Father Heart attack Maternal Grandfather Dementia Mother Relation Name Status Comments Father Maternal Grandfather Mother Social History Tobacco Use Types Packs/Day Years Used Date Smoking Tobacco: Never Smokeless Tobacco: Never Alcohol Use Standard Drinks/Week Comments Yes 0 (1 standard drink = 0.6 oz pur e alcohol) Sex and Gender Information Value Date Recorded Sex Assigned at Not on file Legal Sex Male 1:29 PM EST Gender Identity Not on file Sexual Orientation Not on file Obstetrics History Last Filed Vital Signs Vital Sign Reading Time Taken Comments Blood Pressure 160/66 10/26/2024 9:56 AM EDT Pulse 64 12/28/2023 10:50 AM EDT Temperature - - Respiratory Rate - - Oxygen Saturation 97% 10/26/2024 9:56 AM EDT Inhaled Oxygen Concentration - - Weight 80.7 kg (178 lb) 10/26/2024 9:56 AM EDT Height 165.1 cm (5' 5 ) 10/26/2024 9:56 AM EDT Body Mass Index 29.62 10/26/2024 9:56 AM EDT Plan of Treatment Upcoming Encounters Date Type Department Care Team (Late st Contact Info) Description 04/06/2025 1:40 PM EDT Office Visit [facility] [address] [place] [address] Yareli Yarbrough, LUCILLE [address] [place] [address] Health Maintenance Due Date Last Done Comments DTaP,Tdap,and Td Vaccines (1 - Tdap) 1975 Hepatitis B Vaccines (3 of 3 - Hep B Twinrix 3-dose series) 11/14/2019 06/15/2019, 04/28/2019 Pneumococcal Vaccine: 50+ Years (2 of 2 - PCV) 04/27/2021 04/27/2020 Abdominal Aortic Aneurysm (AAA) Screen 06/04/2022 Cholesterol Screening (Lipid Panel) 06/04/2022 Colorectal Cancer Screening: Colonoscopy 06/04/2022 Falls Risk Assessment 06/04/2022 Hepatitis C Screening 06/04/2022 Medicare Annual Wellness Visit 06/04/2022 Social Influencers of Health Screening 06/04/2022 Hypertension/CHF/CAD Annual BMP Blood Test 07/27/2023 Depression Screening 06/28/2024 COVID-19 Vaccine ( season) 2024 04/23/2024, 09/06/2022, 04/25/2021, Additional history exists Influenza Vaccine (#1) 2025 , 03/22/2023, 03/02/2020, Additional history exists RSV Immunization Adult Patients (1 - 1-dose 75+ series) 2031 Zoster Vaccines Completed 10/30/2020, 04/28, 04/24/2016 Hepatitis A Vaccines Aged Out 11/25/2022, 06/15/2019, 04/28/2019 No longer eligible based on patient's age to complete this topic HIB Vaccines Aged Out No longer eligi ble based on patient's age to complete this topic HPV Vaccines Aged Out No longer eligi ble based on patient's age to complete this topic IPV Vaccines Aged Out No longer eligi ble based on patient's age to complete this topic MMR Vaccines Aged Out No longer eligi ble based on patient's age to complete this topic Meningococcal ACWY Vaccine Aged Out N o longer eligible based on patient's age to complete this topic Meningococcal B Vaccine Aged Out No l onger eligible based on patient's age to complete this topic RSV Immunization Patients Under 20 months Aged Out No longer eligible based on patient's age to complete this topic Varicella Vaccines Aged Out No longer eligible based on patient's age to complete this topic Medical Devices Implanted Type Area Director Community Organization Device Identifier Shelf Expiration Date Model / Serial / Lot Medt-Card [id number] Implanted:05/28 (Quantity not on file) Cardiac Loop Recorder [employer] - CARDIAC RHYTH-CRDM [id number] / [id number] / Insurance MEDICARE [facility] Member Subscriber Plan / Payer (Ef fective 2024-Present) Name:LIU KHALIL Relation to Subscriber:Self Name:Liu Khalil Payer ID:[id number] Group ID:[id number] Type:Not on file Address: [address] [place] [address] Advance Directives Documents on File Type Date Recorded Patient Director [employer] Expl anation Health Care Decision (hx) 04/27/2020 AD BARRIENTOS DIRECTIVE Health Care Decision (hx) 04/27/2020 AD BARRIENTOS DIRECTIVE Health Care Decision (hx) 04/27/2020 AD BARRIENTOS DIRECTIVE Health Care Decision (hx) 04/27/2020 AD BARRIENTOS DIRECTIVE Health Care Decision (hx) 04/27/2020 AD BARRIENTOS DIRECTIVE Health Care Decision (hx) 04/27/2020 AD BARRIENTOS DIRECTIVE Health Care Decision (hx) 04/27/2020 AD BARRIENTOS DIRECTIVE Health Care Decision (hx) 04/27/2020 AD BARRIENTOS DIRECTIVE Health Care Decision (hx) 04/27/2020 AD BARRIENTOS DIRECTIVE Health Care Decision (hx) 04/27/2020 AD BARRIENTOS DIRECTIVE Health Care Decision (hx) 04/27/2020 AD BARRIENTOS DIRECTIVE Health Care Decision (hx) 04/27/2020 AD BARRIENTOS DIRECTIVE Health Care Decision (hx) 04/27/2020 AD BARRIENTOS DIRECTIVE Health Care Decision (hx) 04/27/2020 AD BARRIENTOS DIRECTIVE Health Care Decision (hx) 04/27/2020 AD BARRIENTOS DIRECTIVE Health Care Decision (hx) 04/27/2020 AD BARRIENTOS DIRECTIVE Health Care Decision (hx) 04/27/2020 AD BARRIENTOS DIRECTIVE Health Care Decision (hx) 04/27/2020 AD BARRIENTOS DIRECTIVE Health Care Decision (hx) 04/27/2020 AD BARRIENTOS DIRECTIVE Health Care Decision (hx) 04/27/2020 AD BARRIENTOS DIRECTIVE Health Care Decision (hx) 04/27/2020 AD BARRIENTOS DIRECTIVE Health Care Decision (hx) 04/27/2020 AD BARRIENTOS DIRECTIVE Health Care Decision (hx) 04/27/2020 AD BARRIENTOS DIRECTIVE Health Care Decision (hx) 04/27/2020 AD BARRIENTOS DIRECTIVE Health Care Decision (hx) 04/27/2020 AD BARRIENTOS DIRECTIVE Health Care Decision (hx) 04/27/2020 AD BARRIENTOS DIRECTIVE Health Care Decision (hx) 04/27/2020 AD BARRIENTOS DIRECTIVE Health Care Decision (hx) 04/27/2020 AD BARRIENTOS DIRECTIVE Health Care Decision (hx) 04/27/2020 AD BARRIENTOS DIRECTIVE Care Teams Sap Senior Developer Relationship Specialty Start Date End Date Sav Cavanaugh MD [address] [place] [address] PCP - General Internal Medicine 07/21/24
--- OUTSIDE RECORDS SUMMARY | 2025-02-19 14:06 | XMS_ITS | Encounter Summary ---
Author Organization [facility] Address [address] [place] [address] [address] [place] [address] Phone Care Team Providers Care Machine Shop Helper Name Role Phone Sav Cavanaugh MD Primary Care Provider [phone] Encounter Details Date Type Department Care Team (Late st Contact Info) Description 08/28/2024 Procedure Pass [facility] Cardiac Product Test Specialist [address] [facility] [place] [address] Social History Tobacco Use Types Packs/Day Years Used Date Smoking Tobacco: Never Assessed Education Answer Date Recorded Are you interested in more education? Not on hannah e 11/08/2022 Are you concerned about learning? Not on file 11/08/2022 No 11/08/2022 No 11/08/2022 Digital Access Answer Date Recorded No 11/22/2022 No 11/22/2022 Reliable internet access at home? Not on file 11/22/2022 Device with a working camera? Not on file Sex and Gender Information Value Date Recorded Sex Assigned at Not on file Legal Sex Male 6:16 PM EST Gender Identity Not on file Sexual Orientation Not on file documented as of this encounter Plan of Treatment Not on file documented as of this encounter Visit Diagnoses Not on filedocumented in this encounter Care Teams Machine Shop Helper Relationship Specialty Start Date End Date Sav Cavanaugh MD [address] [place] [address] PCP - General Internal Medicine 05/18/24 documented as of this encounter Additional Source Comments The information contained in this document represents components of the legal health record. It is not the complete legal health record.[facility]
== END 2025-02-19 13:32 | disposition home or self-care (01) ==
LOC: HO.HPS 12:55
PROVIDERS: PCP Internal Medicine; Visit Provider Internal Medicine Pulmonary Disease
DX: G47.33 Obstructive sleep apnea (adult) (pediatric) (principal)
CPT/HCPCS: 99213

== ENCOUNTER → 2025-02-19 12:55 | Outpatient (BNVA) | payer MEDICARE, BC, SELFPAY | PROVIDERS: PCP Internal Medicine; Visit Provider Internal Medicine Pulmonary Disease | DX: G47.33 Obstructive sleep apnea (adult) (pediatric) (principal) | CPT/HCPCS: 99212 ==